=== PATIENT | female | born 1950 | race African-American/Black ===

== ENCOUNTER 2016-12-05 09:08 | Inpatient (IN) | payer OTHER ==
[~2016-12-05] VITALS: Ht 165.1 cm; Wt 59.0 kg
[2016-12-05] MEDS ORDERED: SODIUM CHLORIDE 0.9% 1,000 ML IV ONE (09:28)
[2016-12-05 09:50] LABS: CLARITY URINE CLOUDY (CLEAR); COLOR URINE DARK YELLOW (YELLOW); GLUCOSE URINE NEGATIVE (NEGATIVE); KETONES URINE 1+ (NEGATIVE); LEUKOCYTE ESTERASE URINE 1+ (NEGATIVE); NITRITE URINE NEGATIVE (NEGATIVE); OCCULT BLOOD URINE 1+ (NEGATIVE); PH URINE 5.5 (4.5-8.0); PROTEIN URINE 2+ (NEGATIVE); SPECIFIC GRAVITY URINE 1.034 (1.005-1.030)
[2016-12-05 09:53] LABS: BASOPHILS % 0.6 % (0.0-2.0); EOSINOPHILS % 0.1 % (0.0-5.0); HEMATOCRIT. 41.7 % (36.0-48.0); HEMOGLOBIN. 13.8 g/dL (12.0-16.0); LYMPHOCYTES % 21.3 % (20.0-50.0); MEAN CORPUSCULAR HEMOGLOBIN 31.9 pg (28.0-32.0); MEAN CORPUSCULAR VOLUME 96.2 fL (81.0-99.0); MEAN PLATELET VOLUME 9.5 fl (7.4-10.4); MONOCYTES % 5.3 % (2.0-8.0); NEUTROPHILS % 72.7 % (40.0-76.0); PLATELET 275 x1000/uL (130-400); RED BLOOD CELL COUNT 4.33 mill/uL (4.2-5.4); RED CELL DISTRIBUTION WIDTH 13.2 % (11.6-14.6)
[2016-12-05 10:02] LABS: CHLORIDE 106 mEq/L (98-107)
[2016-12-05 10:08] LABS: AMMONIA 13 uMol/L (<32)
[2016-12-05 10:10] LABS: CARBON DIOXIDE 28 mEq/L (21-32); ETHANOL BLOOD < 10 mg/dL
[2016-12-05] MEDS ORDERED: CEFTRIAXONE 1 G PREMIX 50 ML IV ONE (10:30)
[2016-12-05 10:33] LABS: *AMPHETAMINES SCREEN URINE NEGATIVE (NEGATIVE); *BARBITURATES SCREEN URINE NEGATIVE (NEGATIVE); *BENZODIAZEPINES SCREEN URINE NEGATIVE (NEGATIVE); *COCAINE SCREEN URINE NEGATIVE (NEGATIVE); CANNABINOID URINE SCREEN NEGATIVE (NEGATIVE); METHADONE URINE SCREEN NEGATIVE (NEGATIVE); OPIATES URINE SCREEN NEGATIVE (NEGATIVE); PHENCYCLIDINE URINE SCREEN NEGATIVE (NEGATIVE)
[2016-12-05] MEDS ORDERED: ACETAMINOPHEN 325MG TABLET PO PRN (15:00)
[2016-12-05] MEDS ORDERED: ONDANSETRON HCL 4MG/2ML VIAL IV PRN (15:00)
[2016-12-05] MEDS: SODIUM CHLORIDE 0.9% 1,000 ML IV SCH ×2 (15:44→23:42)
[2016-12-05] MEDS ORDERED: CLONIDINE 0.1MG TABLET PO PRN (15:45)
[2016-12-05 16:19] LABS: EOSINOPHILS % 0.1 % (0.0-5.0); HEMATOCRIT. 35.3 % (36.0-48.0); HEMOGLOBIN. 11.9 g/dL (12.0-16.0); LYMPHOCYTES % 26.4 % (20.0-50.0); MEAN CORPUSCULAR HEMOGLOBIN 32.1 pg (28.0-32.0); MEAN CORPUSCULAR VOLUME 95.4 fL (81.0-99.0); MEAN PLATELET VOLUME 9.1 fl (7.4-10.4); MONOCYTES % 6.3 % (2.0-8.0); NEUTROPHILS % 66.2 % (40.0-76.0); PLATELET 230 x1000/uL (130-400)
[2016-12-05 16:21] LABS: CHLORIDE 109 mEq/L (98-107)
[2016-12-05 16:29] LABS: CARBON DIOXIDE 28 mEq/L (21-32)
[2016-12-05] MEDS ORDERED: LORAZEPAM 2MG/ML CPJ IV PRN (18:15)
[2016-12-05 20:05] VITALS: BP 149/85
[2016-12-05] MEDS ORDERED: ENOXAPARIN 40MG/0.4ML SYR SUBCUT SCH (21:00)
[2016-12-05 21:30] VITALS: BP 149/85
[2016-12-05] MEDS ORDERED: LEVOFLOXACIN 500MG PREMIX 100 ML IV SCH (23:00)
[2016-12-05] MEDS ORDERED: RISP1 PO (23:32)
[2016-12-06] VITALS: BP 155/92
[2016-12-06 04:00] VITALS: BP 155/77
[2016-12-06 08:00] VITALS: BP 165/95
[2016-12-06] MEDS ORDERED: AMLODIPINE 2.5MG TABLET PO SCH (09:00)
[2016-12-06] MEDS ORDERED: ASPIRIN 81MG EC TABLET PO SCH (09:00)
[2016-12-06] MEDS ORDERED: POTASSIUM CHLORIDE 20MEQ TABLET SR PO SCH (09:00)
[2016-12-06 12:00] VITALS: BP 164/91
[2016-12-06 15:49] VITALS: BP 155/83
[2016-12-06 16:00] VITALS: BP 155/83
== END 2016-12-06 18:18 | disposition short-term general hospital (02) | DRG 689 ==
LOC: ER 09:30 → 8WST 12:48 → EDBEDREQ 12:52 → ENRESERV 17:40
PROVIDERS: ADMIT Internal Medicine Geriatric Medicine; ATTEND Internal Medicine Geriatric Medicine
DX: N39.0 Urinary tract infection, site not specified (principal); G92 Toxic encephalopathy; F23 Brief psychotic disorder; F20.9 Schizophrenia, unspecified; I10 Essential (primary) hypertension; F41.1 Generalized anxiety disorder; E78.00 Pure hypercholesterolemia, unspecified; R73.9 Hyperglycemia, unspecified
CPT/HCPCS: 36415; 70450; 80048; 80053; 80305; 81001; 82140; 82962; 83036; 84443; 85025; 87086; 93005; 96361; 96365; 96366; 97161; 99285; G0482; J0696; J1956; J7030